=== PATIENT | female | born 1990 | race African-American/Black ===

== ENCOUNTER 2022-11-10 02:47 | Emergency (ER) | payer OTHER ==
[~2022-11-10] VITALS: Ht 167.6 cm; Wt 111.8 kg
[2022-11-10] MEDS ORDERED: HYDROcodone-ACET 5/325MG TAB PO ONE (07:00)
[2022-11-10 08:08] VITALS: BP 124/67
[2022-11-10] MEDS ORDERED: METH750T22 PO (08:53)
[2022-11-10] MEDS ORDERED: IBUP800T27 PO (08:53)
== END 2022-11-10 09:03 | disposition home or self-care (01) ==
LOC: ER 02:47
DX: M24.811 Other specific joint derangements of right shoulder, not elsewhere classified (principal); M79.641 Pain in right hand
CPT/HCPCS: 73130; 93971